=== PATIENT | female | born 1985 | race Caucasian/White ===

== ENCOUNTER 2017-04-16 05:16 | Day surgery (SDC) | payer OTHER ==
[2017-04-03 11:13] VITALS: Ht 162.6 cm; Wt 149.8 kg
--- NOTE | 2017-04-03 11:43 | PAT Medication Instructions ---
Service Date Apr 03, 2017. Current Home Medication List Albuterol Sulfate (Proair Respiclick), 2 PUFF INH Q4 PRN for SOB/Wheezing Allopurinol (Zyloprim), 100 MG PO HS Duloxetine HCl (Cymbalta), 1 CAP PO HS Etodolac (Etodolac), 1 TAB PO BID PRN for Pain Hydroxychloroquine Sulfate (Plaquenil), 200 MG PO BID Levonorgestrel (Iud) (Mirena), 1 UNIT PV UD Medication Instructions For Your Scheduled Surgery Etodolac (Etodolac), 1 TAB PO BID PRN for Pain (check with surgeon for instructions) Levonorgestrel (Iud) (Mirena), 1 UNIT PV UD (continue as directed) - Check with surgeon/establishment guide for instructions: Hydroxychloroquine Sulfate (Plaquenil), 200 MG PO BID - Take the following medications the morning of surgery with a sip of water: Albuterol Sulfate (Proair Respiclick), 2 PUFF INH Q4 PRN for SOB/Wheezing (if needed) - Take the following medications as scheduled the night before surgery: Duloxetine HCl (Cymbalta), 1 CAP PO HS Allopurinol (Zyloprim), 100 MG PO HS Albuterol Sulfate (Proair Respiclick), 2 PUFF INH Q4 PRN for SOB/Wheezing (if needed) If you have any questions please call us at [phone] or [phone] or [phone]
[2017-04-03 12:10] LABS: HEMATOCRIT 39.6 % (37-47); MEAN CELL VOLUME 88.6 fL (80-100); MEAN CORPUSCULAR HEMOGLOBIN 29.8 pg (25-34); MEAN CORPUSCULAR HGB CONC 33.6 g/dl (32-36); MEAN PLATELET VOLUME 10.4 fL (7.4-10.4); PLATELET COUNT 200 K/uL (130-400); RED BLOOD COUNT 4.47 M/uL (4.2-5.4)
--- NOTE | 2017-04-03 12:25 | DIAGNOSTIC IMAGING REPORT ---
LATERAL RADIOGRAPH OF THE CERVICAL SPINE IN NEUTRAL, FLEXION AND EXTENSION POSITIONS CLINICAL HISTORY: PREOP, ?RHEUMATOID ARTHRITIS COMPARISON STUDY: No previous studies for comparison. FINDINGS: There is reversal of the normal cervical lordosis. There is a suspected narrowing of the atlantodental interval. There is no evidence for instability at the C1-C2 articulation on this exam. No fracture or suspicious lesion is identified within the cervical spine. Disc spaces are preserved. IMPRESSION: 1. No evidence for C1-C2 instability. Narrowing of the atlantodental interval. 2. Reversal of normal cervical lordosis. Electronically signed by: Reza Hernandez M.D. 04/03/2017 12:23 PM Dictated Date/Time: 04/03/2017 12:22 PM
[2017-04-03 13:29] LABS: BUN/CREATININE RATIO 11.1 (10-20); CALCIUM 8.9 mg/dl (8.5-10.1); CREATININE 0.95 mg/dl (0.60-1.20); POTASSIUM 4.4 mmol/L (3.5-5.1)
--- NOTE | 2017-04-07 23:09 | HISTORY & PHYSICAL EXAMINATION ---
DATE OF ADMISSION: 04/16/2017 CHIEF COMPLAINT: Left knee pain, discomfort and swelling. HISTORY OF PRESENT ILLNESS: The patient is a 32-year-old female, currently unemployed, who presents for treatment of her left knee. She has about a 3-year history of left knee pain and discomfort, intermittent swelling. No known injury. It has gotten significantly worse over the past year. She has seen a general assembler installer, diagnosed with unspecified connective tissue disorder, now on Plaquenil. Despite this, she continues to have pain, discomfort and swelling in her knee. She reports even mechanical symptoms such as catching and locking. An MRI revealed a medial meniscus tear. The patient has been through 4 weeks of therapy which only made things worse. She now would like to proceed with surgical treatment. Of note, the patient is morbidly obese with a BMI of 56. PAST MEDICAL HISTORY: 1. Depression. 2. Unspecified venereal disease. 3. Mild asthma. 4. Undifferentiated connective tissue disorder. 5. Morbid obesity with BMI of 56. ALLERGIES: None. CURRENT MEDICINES: Include: 1. Allopurinol once a day. 2. Plaquenil twice a day. 3. Duloxetine once a day. 4. Etodolac twice a day. 5. Inhaler. SOCIAL HISTORY: A 32-year-old female patient from [place]. She is . Does not drink. FAMILY HISTORY: Noncontributory. REVIEW OF SYSTEMS: Negative for diabetes, neurologic problems, vascular problems, bleeding disorders. She does have this unspecified connective tissue disorder. PHYSICAL EXAMINATION: GENERAL: Reveals a large, obese 32-year-old female. HEENT: Benign. NECK: Supple. No lymphadenopathy. LUNGS: Clear to auscultation. HEART: Has a regular rate and rhythm. ABDOMEN: Soft, nontender, nondistended. EXTREMITIES: Grossly neurovascularly intact except as follows: Examination of the left knee reveals the patient walks without any obvious limp. Very large soft tissue envelope. Trace knee effusion. Range of motion 0-125, limited by her soft tissues. No clinical instability. Nic's does cause pain. No obvious mechanical symptoms. X-RAYS: X-ray of the left knee from 10/2016 reviewed as well as films from 09/2016. They show skeletally immature patient. Large soft tissue envelope. Joint space looks pretty normal. MRI from [facility] was reviewed dated 11/30/2016. This shows a degenerative medial meniscus tear. Looks like she is missing a small trunk of her meniscus medially as well along with a small undersurface tear. A little bit of edema in her medial femoral condyle and medial tibial plateau. ASSESSMENT: A 32-year-old morbidly obese female with a 3-year history of left knee pain and discomfort, unresponsive to conservative treatment. It has gotten worse over the past year. She has been through extensive conservative care. MRI revealed a medial meniscus tear. The patient would like to proceed with surgical treatment. PLAN: We talked about treatment. I did tell her that based on her obesity and bone marrow changes, it is hard to predict how much knee arthroscopy will help her. We can certainly fix the meniscal problem but cannot fix other parts such as the bone edema. She understands. She has failed conservative treatment and would like to proceed with knee arthroscopy, partial meniscectomy plus or minus chondroplasty. We are going to take her to the operating room and do a left knee arthroscopy, partial meniscectomy plus or minus chondroplasty. The risks and benefits of this procedure were explained to the patient including but not limited to DVT, PE, , infection, neurological injury, vascular injury, bleeding problem, pain, limited range of motion, stiffness, failure to relieve her symptoms, incomplete relief of symptoms, need for further surgery in the future, fracture, leg length inequality, nerve palsy and progressive knee arthritis. The patient understands and desires to proceed. Informed consent was obtained. Undoubtedly, I did talk to this patient that she is going to develop arthritis in her knee based on her size. She understands this. We are going to do this at the hospital due to her large BMI. She should be able to be discharged to home and do outpatient therapy. We will use aspirin for DVT prophylaxis.
[~2017-04-16] VITALS: Ht 162.6 cm; Wt 149.8 kg
[~2017-04-16 05:16] MED LIST: ALBU18002 INH; ALLO100T PO; CYM/30 PO; ETOD500T95 PO; HYDR200T5 PO; LEVOIUD PV
[2017-04-16] MEDS ORDERED: OXYC-57 PO (05:52)
[2017-04-16] MEDS ORDERED: KETO10TA PO (05:52)
[2017-04-16 05:58] VITALS: BP 143/92; PULSE 87; TEMP 36.6; O2SAT 96
[2017-04-16] MEDS ORDERED: CEFAZOLIN 3000 MG/65 ML D5W IV SCH (06:00)
[2017-04-16] MEDS ORDERED: LACTATED RINGER'S 1000ML 1,000 ML IV SCH (06:00)
[2017-04-16] MEDS ORDERED: FENTANYL CITRATE INJ 50 MCG/1 ML 2 ML VIAL ONE (06:49)
[2017-04-16] MEDS ORDERED: MIDAZOLAM HCL 1 MG/ML 2ML VIAL ONE (06:49)
[2017-04-16] MEDS ORDERED: KETOROLAC TROMETHAMINE 30 MG/ML VIAL IV. PRN (07:00)
[2017-04-16] MEDS ORDERED: EpHEDrine SULFATE INJ 50 MG/ML AMP IV PRN (07:00)
[2017-04-16] MEDS ORDERED: ONDANSETRON INJ 2 MG/ML 2 ML VIAL IV PRN (07:00)
[2017-04-16] MEDS ORDERED: ATROPINE SULFATE 0.1 MG/ML 5ML SYR IV PRN (07:00)
[2017-04-16] MEDS ORDERED: PROMETHAZINE HCL INJ 12.5 MG in SODIUM CHLORIDE 0.9% 50ML 50 ML IV PRN (07:00)
[2017-04-16] MEDS ORDERED: KETOROLAC TROMETHAMINE 30 MG/ML VIAL ONE (07:02)
[2017-04-16] MEDS ORDERED: EpINEphrine INJ 1MG/ML AMP 1 MG/ML AMP ONE (07:02)
--- NOTE | 2017-04-16 07:41 | History & Physical Bridge Note ---
H&P Re-Evaluation Bridge Note: I have examined the patient, reviewed the History & Physical and in the interval since the performance of the History & Physical I have noted the following changes of clinical significance: No changes noted
[2017-04-16] MEDS ORDERED: ONDANSETRON INJ 2 MG/ML 2 ML VIAL ONE (08:30)
[2017-04-16] MEDS ORDERED: SUCCINYLCHOLINE 100MG/5ML SYR IV ONE (08:30)
[2017-04-16] MEDS ORDERED: DEXAMETHASONE SOD INJ 4 MG/ML VIAL ONE (08:30)
[2017-04-16] MEDS ORDERED: PROPOFOL IV EMULSION 10 MG/ML 20 ML VIAL IV ONE (08:30)
[2017-04-16] MEDS ORDERED: LIDOCAINE HCL 2% 2 ML VIAL (20MG/ML) ONE (08:30)
[2017-04-16] MEDS ORDERED: ROCURONIUM BROMIDE 10 MG/ML 5 ML VIAL IV ONE (08:57)
--- NOTE | 2017-04-16 08:58 | [facility] Post Operative Brief Note ---
Immediate Operative Summary Operative Date Apr 16, 2017. Pre-Operative Diagnosis Left Knee medial meniscus tear Post-Operative Diagnosis SAME Procedure(s) Performed Left Knee Arthroscopy, Partial Medial Menisectomy Surgeon Dr. Javy Joseph Adjuster Leader Surgeon(s) Monroe Aguayo PA-C Estimated Blood Loss Minimal Findings Medial Meniscus Tear Specimens none per surgeon Anesthesia General Complication(s) None Disposition Recovery Room / PACU
[2017-04-16] MEDS ORDERED: OXYCODONE/ACETAMINOPHEN 5-325 TAB PO PRN (09:00)
[2017-04-16] MEDS ORDERED: SODIUM CHLORIDE 0.9% 1000ML 1,000 ML IV SCH (09:00)
--- NOTE | 2017-04-16 09:05 | Discharge Instructions ---
Discharge Instructions Date of Service Apr 16, 2017. Admission Reason for Admission: Left Knee Medial Meniscal Tear, Degenerative Joint Discharge Discharge Diagnosis / Problem: left knee medical meniscus tear Discharge Goals Goal(s): Decrease discomfort, Improve function, Therapeutic intervention Activity Recommendations Activity Limitations: per Instructions/Follow-up section Weightbearing Status: Left weightbearing (as tolerated) . Instructions / Follow-Up Instructions / Follow-Up MEDICATIONS: * Resume previous medications unless instructed otherwise by your surgeon. * Always take pain medication on a full stomach or with food to avoid upset stomach. * Do not drink alcohol or drive while taking narcotics. * Ibuprofen or Tylenol may be taken if narcotic not needed. No ibuprofen while taking toradol SPECIAL CARE INSTRUCTIONS: __ None _x_ Keep extremity elevated and iced x 48 hours; apply ice 20-30 minutes 8-10 times/day. May remove at night. __ Crutches __ May discard when able __ Brace/Post-op shoe __ 24 hrs/day __ Remove at night x__ Dressing __ Maintain until seen in office, may shower with plastic over site _x_ Remove dressings in 24-48 hours and then may shower _x_ Cover incisions with band-aids after showering __ Do not remove steri-strips Call physician if chills or temperature rises above 102 degrees or pain unrelieved by prescribed pain medications. Office [phone] follow up in 2 weeks Current Hospital Diet Patient's current hospital diet: Discharge Diet Recommended Diet: Regular Diet Procedures Procedures Performed: Left Knee Arthroscopy, Partial Medial Menisectomy Pending Studies Studies pending at discharge: no Medical Emergencies . Who to Call and When: Medical Emergencies: If at any time you feel your situation is an emergency, please call 911 immediately. . Non-Emergent Contact Non-Emergency issues call your: Surgeon . "Provider Documentation" section prepared by Luís Aguayo. . VTE Core Measure Inpt VTE Proph given/why not?: Treatment not indicated
[2017-04-16] MEDS: FENTANYL CITRATE INJ 50 MCG/1 ML 2 ML VIAL IV PRN ×4 (09:06→09:23)
[2017-04-16] MEDS: HYDROmorphone INJ 1 MG/ML SYR IV PRN ×2 (09:28→09:34)
--- NOTE | 2017-04-16 09:46 | Anesthesiology Progress Note ---
Anesthesia Post Op Note Date & Time Apr 16, 2017 at 09:46 Vital Signs Pain Intensity: 4 Vital Signs Past 12 Hours Date Time Temp Pulse Resp B/P (MAP) Pulse Ox O2 Delivery O2 Flow Rate FiO2 04/16/17 09:40 36.4 87 18 105/59 96 Room Air 04/16/17 09:30 82 16 108/69 98 Room Air 04/16/17 09:20 90 16 92/70 90 Oxymask 10 04/16/17 09:10 84 16 119/72 97 Oxymask 10 04/16/17 09:01 36.0 87 16 106/80 98 Oxymask 10 04/16/17 05:58 36.6 87 18 143/92 (109) 96 Room Air Notes Mental Status: alert / awake / arousable, participated in evaluation Pt Amnestic to Procedure: Yes Nausea / Vomiting: adequately controlled Pain: adequately controlled Airway Patency, RR, SpO2: stable & adequate BP & HR: stable & adequate Hydration State: stable & adequate Anesthetic Complications: no major complications apparent Doing well. Awake. No n/v. VSS
[2017-04-16 10:00] VITALS: BP 119/64; PULSE 77; TEMP 36.6; O2SAT 97
[2017-04-16 10:35] VITALS: BP 113/64; PULSE 83; O2SAT 95
[2017-04-16 11:00] VITALS: BP 125/70; PULSE 80; TEMP 36.6; O2SAT 96
--- NOTE | 2017-04-16 23:11 | OPERATIVE REPORT ---
DATE OF OPERATION: 04/16/2017 SURGEON: Javy Joseph MD FLUME MAKER: KAVITA Guzman. PREOPERATIVE DIAGNOSES: 1. Left knee medial meniscus tear. 2. Left knee patellofemoral pain. POSTOPERATIVE DIAGNOSES: Same. PROCEDURES PERFORMED: 1. Left knee exam under anesthesia. 2. Left knee diagnostic arthroscopy. 3. Left knee arthroscopic partial medial meniscectomy. COMPLICATIONS: None. ESTIMATED BLOOD LOSS: Minimal. TOURNIQUET TIME: 25 minutes at 350 mmHg. ANESTHESIA: General. SPECIMENS: None. OPERATIVE INDICATIONS: The patient is a 32-year-old female who has had a 3-year history of left knee pain and discomfort. It has gradually gotten worse over the past 6 months. She has been through extensive conservative therapy including physical therapy and it actually seemed to make things worse. She did have an x-ray, revealed minimal arthritic change. MRI revealed medial meniscus tear. The patient elected to proceed with operative treatment. She is fully aware that this is unlikely to take away all of her knee pain but would hopefully help with her mechanical symptoms. OPERATIVE FINDINGS: Revealed a large soft tissue envelope. There was no appreciable effusion. Her range of motion of her knee was 0-125, limited by her soft tissues. There is no clinical instability. Nic's is negative for mechanical symptoms. ARTHROSCOPIC FINDINGS: Arthroscopic findings revealed minimal effusion. Her patellofemoral joint was well maintained with minimal arthritic change. In the intercondylar notch, the ACL and PCL were intact. In the medial compartment, there was a complex degenerative tear of the posterior horn of the medial meniscus. There were flaps posteriorly and there was a portion that was flipped underneath the remainder of the meniscus and looked like it was scarred in that position. The articular surface was fairly well preserved. In the lateral compartment, the articular surface and meniscus showed some age-related changes. No tears. OPERATIVE PROCEDURE: The patient taken to the operating room, identified and placed on the operating table in supine position. All contact areas were appropriately padded. IV antibiotics were provided by anesthesia team. A general anesthetic was implemented by anesthesia team. A left thigh tourniquet was then placed. The left knee was then examined under anesthesia with findings as described above. Left leg was then prepped and draped in the usual sterile fashion. The left leg was elevated and exsanguinated with Esmarch and tourniquet was placed at 350 mmHg. Routine left knee arthroscopy was then performed through typical anteromedial and anterolateral portals. Superolateral outflow portal was established for outflow. Attention was then drawn to the medial meniscus. With the use of motorized and hand controlled instruments, a partial medial meniscectomy was then performed. I resected the torn piece of the meniscus. This portion that was flipped underneath and scarred down, I had to resect very carefully with the use of a shaver. Once this was complete, the arthroscopic instruments were placed throughout the knee joint. All extraneous debris was removed. The arthroscopic instruments were then removed from the knee joint and the portals were closed with 3-0 Prolene suture in a vertical mattress fashion. The knee was injected with 30 mL of 0.5% ropivacaine with epinephrine and 30 mg of Toradol. A sterile dressing composed of Xeroform, 4 x 4, sterile cast padding and Bakari bandage were applied. The tourniquet was then let down for a tourniquet time of 25 minutes. The patient was then brought out of general anesthesia and transferred to the recovery room in stable condition. The patient tolerated the procedure well with no complications. All needle and sponge counts were correct at the end of the operation. I attest to the content of the Intraoperative Record and any orders documented therein. Any exception s are noted below.
== END 2017-04-16 11:14 | disposition home or self-care (01) ==
LOC: C.ACU 05:16
PROVIDERS: ATTEND Orthopaedic Surgery Sports Medicine
DX: M23.8X2 Other internal derangements of left knee (principal); F32.9 Major depressive disorder, single episode, unspecified; E66.01 Morbid (severe) obesity due to excess calories; Z68.43 Body mass index [BMI] 50.0-59.9, adult

== ENCOUNTER → 2017-12-30 | Day surgery (SDC) | payer OTHER ==
[2017-12-19 09:59] VITALS: Ht 162.6 cm; Wt 160.0 kg
--- NOTE | 2017-12-23 09:01 | PAT Medication Instructions ---
Service Date December 23, 2017. Current Home Medication List Albuterol Sulfate (Proair Respiclick), 2 PUFF INH Q4 PRN for SOB/Wheezing Allopurinol (Zyloprim), 100 MG PO HS Bupropion (Wellbutrin Sr), 150 MG PO QAM Buspirone Hcl (Buspirone Hcl), 10 MG PO BID Etodolac (Etodolac), 1 TAB PO BID PRN for Pain Hydroxychloroquine Sulfate (Plaquenil), 200 MG PO BID Levonorgestrel (Iud) (Mirena), 1 UNIT PV UD Quetiapine Fumarate (Seroquel), 50 MG PO HS Medication Instructions For Your Scheduled Surgery -Check with your surgeon for instructions for: Etodolac (Etodolac), 1 TAB PO BID PRN for Pain -Follow your surgeon's instructions for: Hydroxychloroquine Sulfate (Plaquenil), 200 MG PO BID -Continue as directed: Levonorgestrel (Iud) (Mirena), 1 UNIT PV UD - Take the following medications the morning of surgery with a sip of water: Albuterol Sulfate (Proair Respiclick), 2 PUFF INH Q4 PRN for SOB/Wheezing (if needed, and bring it with you the morning of surgery) Bupropion (Wellbutrin Sr), 150 MG PO QAM Buspirone Hcl (Buspirone Hcl), 10 MG PO BID - Take the following medications as scheduled the night before surgery: Albuterol Sulfate (Proair Respiclick), 2 PUFF INH Q4 PRN for SOB/Wheezing (if needed) Allopurinol (Zyloprim), 100 MG PO HS Buspirone Hcl (Buspirone Hcl), 10 MG PO BID Quetiapine Fumarate (Seroquel), 50 MG PO HS If you have any questions please call us at [phone] or [phone] or [phone]
[2017-12-23 10:58] LABS: CREATININE 0.98 mg/dl (0.60-1.20); POTASSIUM 3.8 mmol/L (3.5-5.1)
[~2017-12-30] VITALS: Ht 162.6 cm; Wt 160.0 kg
[~2017-12-30] MED LIST changes: +ATROPINE SULFATE 0.1 MG/ML 5ML SYR IV PRN; +BUPIVACAINE 0.5 % 5 MG/1 ML PF 10ML VIAL ONE; +BUPR-79 PO; +BUSP-8 PO; +CEFAZOLIN 3000MG IV PUSH 22.5 ML IV SCH; -CYM/30 PO; +EpHEDrine SULFATE INJ 50 MG/ML AMP IV PRN; +FENTANYL CITRATE INJ 50 MCG/1 ML 2 ML VIAL IV PRN; +FENTANYL CITRATE INJ 50 MCG/1 ML 2 ML VIAL ONE; +LACTATED RINGER'S 1000ML 1,000 ML IV SCH; +LEVO1IUD2 PV; -LEVOIUD PV; +LIDOCAINE HCL 1% 20 ML VIAL ONE; +LIDOCAINE HCL 2% 2 ML VIAL (20MG/ML) ONE; +MIDAZOLAM HCL 1 MG/ML 2ML VIAL ONE; +ONDANSETRON INJ 2 MG/ML 2 ML VIAL IV PRN; +OXYCODONE/ACETAMINOPHEN 5-325 TAB PO PRN; +PROPOFOL IV EMULSION 10 MG/ML 20 ML VIAL ONE; +QUET1TAB32 PO; +SODIUM CHLORIDE 0.9% 1000ML 1,000 ML IV SCH; +TRAM-10 PO
--- NOTE | 2017-12-30 09:08 | [facility] Post Operative Brief Note ---
Immediate Operative Summary Operative Date December 30, 2017. Pre-Operative Diagnosis Left Carpal tunnel syndrome Post-Operative Diagnosis same as preop Procedure(s) Performed Left Carpal Tunnel Release Surgeon Dr. Cope Building Maintenance Engineer Surgeon(s) MIRA Bello Estimated Blood Loss 0ML Findings Consistent with Post-Op Diagnosis Specimens none Drains None Anesthesia Type MAC Complication(s) none
--- NOTE | 2017-12-30 09:11 | Discharge Instructions-SurgCtr ---
Discharge Instructions Date of Service December 30, 2017. Visit Reason for Visit: Left Carpal Tunnel Syndrome Discharge Discharge Diagnosis / Problem: SAME ABOVE Discharge Goals Goal(s): Decrease discomfort, Improve function Medications Stopped Medications Name(s): Stopped taking Plaquenil two weeks ago. Activity Recommendations Activity Limitations: as noted below Lifting Limitations: gradually increase as tolerated Shower/Bathe: keep incision dry Anesthesia . Post Anesthesia Instructions: If you have had General Anesthesia or IV Sedation: * Do not drive today. * Resume driving when surgeon permits. * Do not make important decisions or sign legal documents today. * Call surgeon for: 1. Temperature elevations greater than 101 degrees F. 2. Uncontrollable pain. 3. Excessive bleeding. 4. Persistent nausea and vomiting. 5. Medication intolerance (nausea, vomiting or rash). * For nausea and vomiting use only clear liquids such as: tea, soda, bouillon until nausea subsides, then gradually increase diet as tolerated. * If you have any concerns or questions, call your surgeon's office. If physician is unavailable and it is an emergency, call 911 or go to the nearest emergency room. . Instructions / Follow-Up Instructions / Follow-Up MEDICATIONS: * Resume previous medications unless instructed otherwise by your surgeon. * Always take pain medication on a full stomach or with food to avoid upset stomach. * Do not drink alcohol or drive while taking narcotics. * Ibuprofen or Tylenol may be taken if narcotic not needed. SPECIAL CARE INSTRUCTIONS: __ None _X_ Keep extremity elevated and iced x 48 hours; apply ice 20-30 minutes 8-10 times/day. May remove at night. __ Sling __24 hrs/day __ Remove at night __ Shoulder Immobilizer __ 24 hrs/day __ Remove at night _X_ Dressing _X_ Maintain until seen in office, may shower with plastic over site __ Remove dressings in 24-48 hours and then may shower __ Cover incisions with band-aids after showering __ Do not remove steri-strips Call physician if chills or temperature rises above 102 degrees or pain unrelieved by prescribed pain medications at . . Diet Recommendations Home Diet: no limitations Procedures Procedures Performed: Left Carpal Tunnel Release Pending Studies Studies pending at discharge: no Medical Emergencies . Who to Call and When: Medical Emergencies: If at any time you feel your situation is an emergency, please call 911 immediately. . Non-Emergent Contact Non-Emergency issues call your: Primary Care Provider . . "Provider Documentation" section prepared by Basil Martines. .
[2017-12-30 09:13] VITALS: TEMP 36.6
[2017-12-30 09:38] VITALS: BP 127/84; PULSE 97; O2SAT 98
--- NOTE | 2017-12-30 09:46 | Anesthesia Progress Nt - [facility] ---
Anesthesia Post Op Note Date & Time December 30, 2017 at 09:46 Vital Signs Pain Intensity: 0 Vital Signs Past 12 Hours Date Time Temp Pulse Resp B/P (MAP) Pulse Ox O2 Delivery O2 Flow Rate FiO2 12/30/17 09:38 97 16 127/84 (98) 98 Room Air 12/30/17 09:13 36.6 93 16 132/79 (96) 96 Room Air 12/30/17 07:37 36.5 85 16 126/87 (100) 98 Room Air Notes Mental Status: alert / awake / arousable, participated in evaluation Pt Amnestic to Procedure: Yes Nausea / Vomiting: adequately controlled Pain: adequately controlled Airway Patency, RR, SpO2: stable & adequate BP & HR: stable & adequate Hydration State: stable & adequate Anesthetic Complications: no major complications apparent
--- NOTE | 2017-12-30 11:18 | OPERATIVE REPORT ---
DATE OF OPERATION: 12/30/2017 PREOPERATIVE DIAGNOSIS: Left carpal tunnel syndrome. POSTOPERATIVE DIAGNOSIS: Same. PROCEDURE: Release transverse carpal ligament, left wrist. SURGEON: Valentin Cope MD CHIEF METEOROLOGIST: Basil Martines PA-C. ANESTHESIOLOGIST: Basil Hicks MD ANESTHESIA: Local with IV sedation. DRAINS: None. COMPLICATIONS: None. CONDITION: The patient tolerated the procedure well and returned to recovery in apparent satisfactory condition. INDICATIONS FOR SURGERY: Lizzy is a 32-year-old female with increasing pain, numbness and tingling in the left hand consistent with carpal tunnel syndrome. Went over treatment options and elected to go ahead and proceed with surgery. The procedure, expected outcome, side effects and risks were all explained in detail. DESCRIPTION OF PROCEDURE: The patient was taken to the OR at which time she was placed supine on the operating table. The left hand was prepped and draped in the usual sterile fashion for this surgery. The anticipated incision site was infiltrated with 1% Xylocaine. A forearm tourniquet was placed on the arm and tourniquet was placed up to 250 mmHg. Incision was made vertically over the transverse carpal tunnel ligament. Dissection was done down until the palmar fascia was identified and divided with a 15-blade. The transverse carpal ligament was identified and also divided with the 15-blade and upbiting scissors. A small portion of the forearm fascia was divided also. Electrocautery was used to control any areas of bleeding. The nerve was freed up from any scar tissue and adequately decompressed. The wound then was copiously irrigated. It was closed then with interrupted 4-0 nylon sutures. Marcaine without Epinephrine was placed in the skin edges. It was closed in a layered fashion. We placed a sterile dressing of Xeroform, 4 x 4, volar splint, and an Bakari bandage. DISPOSITION: The patient was returned back to the recovery room in apparent satisfactory condition. I attest to the content of the Intraoperative Record and any orders documented therein. Any exception s are noted below.
== END | disposition home or self-care (01) ==
LOC: X.SURG 07:18
PROVIDERS: ATTEND Orthopaedic Surgery
DX: G56.02 Carpal tunnel syndrome, left upper limb (principal); J45.909 Unspecified asthma, uncomplicated; G47.33 Obstructive sleep apnea (adult) (pediatric); E66.01 Morbid (severe) obesity due to excess calories; Z68.44 Body mass index [BMI] 60.0-69.9, adult